=== PATIENT | male | born 1995 | race Caucasian/White ===

== ENCOUNTER 2017-08-01 14:39 | Emergency (ER) | payer BC ==
[2017-08-01 14:55] VITALS: BP 128/79
--- NOTE | 2017-08-01 17:36 | UC ---
Lorne Fish Thomas, scribed for Yosef Gamboa MD on 08/01/17 at 1500 . Eye Complaint HPI - HPI Summary HPI Summary: The patient is a 22 year old male presenting to Urgent Care complaining of right eye erythema, pruritus, and irritation for the last two days. He woke up with some discharge to his right eye. He also requests a refill of his Singulair , which is is prescribed for his asthma. - History of Current Complaint Chief Complaint: UCEye Stated Complaint: EYE IRRITATION, AND MED REFILL Time Seen by Provider: 08/01/17 14:54 Hx Obtained From: Patient Onset/Duration: Lasting Days - 2, Still Present Timing: Constant Severity Currently: Mild Location of Injury: Conjunctiva - R Aggravating Factor(s): Nothing Alleviating Factor(s): Nothing Associated Signs And Symptoms: Negative: Fever - Allergies/Home Medications Allergies/Adverse Reactions: Allergies Allergy/AdvReac Type Severity Reaction Status Date / Time No Known Allergies Allergy Verified 04/16/15 17:38 PMH/Surg Hx/FS Hx/Imm Hx Previously Healthy: No - NEGATIVE: HTN, DM Respiratory History: Asthma - Surgical History Surgical History: Yes Surgery Procedure, Year, and Place: t&a - Family History Known Family History: Positive: Diabetes - Social History Occupation: Employed Full-time Alcohol Use: None Substance Use Type: None Smoking Status (MU): Never Smoked Tobacco Review of Systems Constitutional: Other - NEGATIVE: fever Skin: Other - R eye erythema, pruritus, irritation Is Patient Immunocompromised?: No All Other Systems Reviewed And Are Negative: Yes Physical Exam Triage Information Reviewed: Yes Vital Signs: Initial Vital Signs Temp 99.4 F 08/01/17 14:53 Pulse 82 08/01/17 14:53 Resp 16 08/01/17 14:53 BP 128/79 08/01/17 14:53 Pulse Ox 98 08/01/17 14:53 Vital Signs Reviewed: Yes - Additional Comments VITAL SIGNS: Reviewed. GENERAL: Patient is a well-developed and nourished male who is lying comfortable in the stretcher. Patient is not in any acute respiratory distress. HEAD AND FACE: Normocephalic EYES: PERRLA, EOMI x 2. There right conjunctiva is injected with erythema. EARS: Hearing grossly intact. MOUTH: Oropharynx within normal limits. NECK: Supple, trachea is midline, no adenopathy, no JVD, no carotid bruit. CHEST: Symmetric, no tenderness at palpation LUNGS: Clear to auscultation bilaterally. No wheezing or crackles. CVS: Regular rate and rhythm, S1 and S2 present, no murmurs or gallops appreciated. ABDOMEN: Soft, non-tender. Bowel sounds are normal. No abdominal abnormal pulsations. EXTREMITIES: Full ROM in all major joints, no edema, no cyanosis or clubbing. NEURO: Alert and oriented x 3. No acute neurological deficits. Speech is normal and follows commands. SKIN: Dry and warm Eye Complaint Course/Dx - Course Course Of Treatment: The patient is a 22 year old male presenting to Urgent Care complaining of right eye erythema, pruritus, and irritation for the last two days. He woke up with some discharge to his right eye. He also requests a refill of his Singulair for his asthma. The patient is diagnosed with conjunctivitis. The patient will be discharged home and instructed to follow up with primary care. The patient is prescribed Ciprofloxacin solution and Singulair. - Differential Dx/Diagnosis Differential Diagnosis/HQI/PQRI: Conjunctivitis, Foreign Body, Periorbital Cellulitis Provider Diagnoses: Conjunctivitis Discharge - Discharge Plan Condition: Stable Disposition: HOME Prescriptions: Ciprofloxacin 0.3% OPTH.JAN* [Cipro 0.3% Opth*] 2 drop BOTH EYES Q4H #1 btl Montelukast Sodium TAB* [Singulair TAB*] 10 mg PO DAILY #30 tab Patient Education Materials: Conjunctivitis (ED) Referrals: Blaire Kelly MD [Primary Care Provider] - The documentation as recorded by the Lorne jackson Thomas accurately reflects the service I personally performed and the decisions made by , Yosef Gamboa MD.
== END 2017-08-01 15:11 | disposition home or self-care (01) ==
LOC: UCEAST 14:39
DX: H10.9 Unspecified conjunctivitis (principal); J45.909 Unspecified asthma, uncomplicated; Z76.0 Encounter for issue of repeat prescription
CPT/HCPCS: 99212; G0463

== ENCOUNTER 2018-05-23 19:45 | Emergency (ER) | payer BC, OTHER ==
[2018-05-23 20:15] VITALS: BP 124/65
--- NOTE | 2018-05-23 20:15 | UC ---
UC General HPI - HPI Summary HPI Summary: 3 day hx of sore throat, body aches, fever and some diarrhea but that may be a recent dietary change. - History of Current Complaint Stated Complaint: SORE THROAT Time Seen by Provider: 05/23/18 20:06 Hx Obtained From: Patient Onset/Duration: Gradual Onset Timing: Constant Alleviating: nothing - Allergy/Home Medications Allergies/Adverse Reactions: Allergies Allergy/AdvReac Type Severity Reaction Status Date / Time amoxicillin Allergy Rash Verified 05/23/18 20:10 codeine Allergy See Comment Verified 05/23/18 20:10 Penicillins Allergy See Comment Verified 05/23/18 20:10 Home Medications: Home Medications Dm/Pseudoephed/Acetaminophen [Day-Time Cold-Flu Softgel] 1 each PO DAILY [History Confirmed 05/23/18] guaiFENesin [Mucinex] 600 mg PO DAILY 05/23/18 [History Confirmed 05/23/18] PMH/Surg Hx/FS Hx/Imm Hx Respiratory History: Asthma - Surgical History Surgical History: Yes Surgery Procedure, Year, and Place: t&a - Family History Known Family History: Positive: Diabetes - Social History Occupation: Employed Full-time Alcohol Use: None Substance Use Type: None Smoking Status (MU): Never Smoked Tobacco - Immunization History Vaccination Up to Date: Yes Review of Systems Constitutional: Fever Skin: Negative Eyes: Negative ENT: Sore Throat Respiratory: Negative Cardiovascular: Negative Gastrointestinal: Diarrhea Genitourinary: Negative Motor: Negative Neurovascular: Negative Musculoskeletal: Myalgia Neurological: Negative Psychological: Negative Is Patient Immunocompromised?: No All Other Systems Reviewed And Are Negative: Yes Physical Exam Triage Information Reviewed: Yes Appearance: Well-Appearing Eye Exam: Normal Eyes: Positive: Conjunctiva Clear ENT: Positive: Pharyngeal erythema, TMs normal. Negative: Nasal congestion, Nasal drainage Neck: Positive: Supple, Tenderness @ - peritonsilar nodes, Enlarged Nodes @ - peritonsilar nodes Respiratory: Positive: Lungs clear, Normal breath sounds, No respiratory distress Cardiovascular: Positive: RRR, No Murmur Abdomen Description: Positive: Nontender, No Organomegaly, Soft Bowel Sounds: Positive: Present Musculoskeletal: Positive: ROM Intact Neurological: Positive: Alert Psychological: Positive: Age Appropriate Behavior Skin Exam: Normal Diagnostics - Laboratory Diagnostic Studies Completed/Ordered: rapid strep=positive Course/Dx - Course Course Of Treatment: rapid strep=positive - Differential Dx - Multi-Symptom Provider Diagnoses: strep throat Discharge - Sign-Out/Discharge Documenting (check all that apply): Patient Departure All imaging exams completed and their final reports reviewed: No Studies - Discharge Plan Condition: Stable Disposition: HOME Prescriptions: Azithromycin 500 mg PO DAILY 5 Days #5 tablet Patient Education Materials: Strep Throat (DC) Forms: *Work Release Referrals: Blaire Kelly MD [Primary Care Provider] - 7 Days - Billing Disposition and Condition Condition: STABLE Disposition: Home
[2018-05-23] MEDS ORDERED: Azithromycin TAB* 250 MG PO ONE (20:30)
== END 2018-05-23 20:40 | disposition home or self-care (01) ==
LOC: UCCORT 19:45
DX: J02.0 Streptococcal pharyngitis (principal); Z88.0 Allergy status to penicillin; Z88.5 Allergy status to narcotic agent
CPT/HCPCS: 87651; 99212; A9270-GY; G0463